=== PATIENT | female | born 1980 | race Two or more races ===

== ENCOUNTER 2018-11-30 05:25 | Emergency (ER) | payer OTHER ==
[~2018-11-30] VITALS: Ht 160 cm; Wt 124.7 kg
[2018-11-30] MEDS ORDERED: TIROSINT13 MCG (05:33)
[2018-11-30] MEDS ORDERED: LISINOPRIL2.5 MG (05:33)
[2018-11-30] MEDS ORDERED: MUCINEX100 MG (05:34)
[2018-11-30] MEDS ORDERED: ALPRAZOLAM OD0.25 MG (05:34)
[2018-11-30] MEDS ORDERED: FORTAMET500 MG (05:34)
== END 2018-11-30 10:24 | disposition home or self-care (01) ==
LOC: ER 05:25
DX: R22.0 Localized swelling, mass and lump, head (principal); T48.4X5A Adverse effect of expectorants, initial encounter